=== PATIENT | male | born 1970 | race Hispanic/Latino ===

== ENCOUNTER 2022-02-05 22:53 | Emergency (ER) | payer BC, OTHER ==
[~2022-02-05] VITALS: Ht 177.8 cm; Wt 89.8 kg
[2022-02-06] MEDS ORDERED: GUAI100S13 PO (00:59)
[2022-02-06] MEDS ORDERED: BENZ200C53 PO (00:59)
[2022-02-06 02:26] VITALS: BP 140/82
== END 2022-02-06 02:27 | disposition home or self-care (01) ==
LOC: EDH 22:53
DX: J20.9 Acute bronchitis, unspecified (principal); Z20.822 Contact with and (suspected) exposure to COVID-19; E11.9 Type 2 diabetes mellitus without complications; I10 Essential (primary) hypertension; Z95.5 Presence of coronary angioplasty implant and graft
CPT/HCPCS: 99283; 87635; 87880; 87804 ×2; C9803